=== PATIENT | female | born 1955 | race Caucasian/White ===

== ENCOUNTER 2017-08-31 08:06 | Inpatient (IN) | payer BC ==
[2017-08-31] VITALS (11 sets, daily range): BP systolic 110–131; BP diastolic 67–89
[~2017-08-31] VITALS: Ht 172.7 cm; Wt 220.0 kg
[~2017-08-31 08:06] MED LIST: BENA40TA8 PO; BUDE10.22 INH; LEVO88TA39 PO
[2017-08-31] MEDS: nitroGLYCERIN-Tridil 50MG/D5W 250 ML IV PRN ×2 (08:42→09:19)
[2017-08-31] MEDS ORDERED: tirofiban 5mg in NS 100mL 100 ML IV SCH (08:50)
[2017-08-31 09:03] LABS: BASOPHILS % (AUTO) 0.1 % (0-1); EOSINOPHILS # (AUTO) 0.2 X10'3 (0-0.9); EOSINOPHILS % (AUTO) 1.9 % (0-6); HEMATOCRIT 39.6 % (35.0-45.0); HEMOGLOBIN 13.7 g/dl (12.0-16.0); LYMPHOCYTES # (AUTO) 2.3 X10'3 (1.1-4.8); LYMPHOCYTES % (AUTO) 26.6 % (21-51); MEAN CORPUSCULAR HEMOGLOBIN 29.7 PG (27.0-31.0); MEAN CORPUSCULAR HGB CONC 34.7 % (33.0-36.5); MEAN CORPUSCULAR VOLUME 85.8 FL (78-98); MEAN PLATELET VOLUME 7.6 FL (7.4-10.4); MONOCYTES # (AUTO) 0.4 X10'3 (0-0.9); MONOCYTES % (AUTO) 4.8 % (2-12); NEUTROPHILS # (AUTO) 5.9 X10'3 (1.8-7.7); NEUTROPHILS % (AUTO) 66.6 % (42-75); PLATELET COUNT 283 X10'3 (140-440); RED BLOOD COUNT 4.61 X10'6 (4.20-5.60); RED CELL DISTRIBUTION WIDTH 13.9 % (11.5-14.5); WHITE BLOOD COUNT 8.8 X10'3 (4.5-11.0)
[2017-08-31 09:12] LABS: PARTIAL THROMBOPLASTIN TIME 52 SECONDS (22-32)
[2017-08-31] MEDS ORDERED: LIDOcaine 1% 30ml vial 30 ML ONE (09:15)
[2017-08-31] MEDS ORDERED: nitroGLYCERIN-Tridil 50MG/D5W 250 ML IV ONE (09:15)
[2017-08-31] MEDS ORDERED: heparin 1,000unit/ml 10ml vial 10 ML ONE (09:15)
[2017-08-31] MEDS ORDERED: iohexol 350 MG/ML 50ML vial IV ONE (09:16)
[2017-08-31] MEDS ORDERED: iohexol 350MG/ML 100ml bottle IV ONE (09:16)
[2017-08-31] MEDS ORDERED: midazolam 2 mg/2 ml injection ONE (09:18)
[2017-08-31] MEDS ORDERED: fentaNYL/PF 50MCG/1 ML 2ML syringe ONE (09:18)
[2017-08-31 09:24] LABS: ALANINE AMINOTRANSFERASE 15 U/L (12-78); ALBUMIN 3.5 G/DL (3.4-5.0); ALBUMIN/GLOBULIN RATIO 0.9 (1.1-1.5); ALKALINE PHOSPHATASE 78 IU/L (46-116); ANION GAP 7 (8-16); ASPARTATE AMINO TRANSFERASE 42 U/L (10-37); BILIRUBIN,TOTAL 0.8 MG/DL (0.1-1.0); BLOOD UREA NITROGEN 15 MG/DL (7-18); BUN/CREATININE RATIO 16.7 (6.6-38.0); CALCIUM 9.5 MG/DL (8.5-10.1); CHLORIDE 104 MMOL/L (99-107); GLUCOSE 106 MG/DL (70-104); MAGNESIUM 2.1 MG/DL (1.5-2.4); POTASSIUM 3.7 MMOL/L (3.5-5.1); SODIUM 143 MMOL/L (135-145); TOTAL CARBON DIOXIDE 32.1 MMOL/L (24-32); TOTAL PROTEIN 7.4 G/DL (6.4-8.2); eGFR 64 ML/MIN
[2017-08-31] MEDS ORDERED: enoxaparin 100mg/ml syringe SUBCUT ONE (09:30)
[2017-08-31] MEDS ORDERED: normal saline 1000ml 1,000 ML IV SCH (09:38)
[2017-08-31] MEDS ORDERED: magnesium 2GM in 50ml NS 50 ML IV PRN (09:40)
[2017-08-31] MEDS ORDERED: magnesium 4gm in 100ml NS 100 ML IV PRN (09:40)
[2017-08-31] MEDS: K and/or MAG REPLACEMENT MC SCH (09:40)
[2017-08-31] MEDS ORDERED: acetaminophen 325mg tablet PO PRN ×2 (09:40)
[2017-08-31] MEDS ORDERED: magnesium hydroxide 30ml (MOM) UD suspension PO PRN (09:40)
[2017-08-31] MEDS ORDERED: ondansetron/PF 4mg/2ml inj IV PRN (09:40)
[2017-08-31] MEDS ORDERED: magnesium Cl slow-release 64mg tablet PO PRN (09:40)
[2017-08-31] MEDS ORDERED: potassium Cl 40MEQ/NS 500ml 500 ML IV PRN ×2 (09:40)
[2017-08-31] MEDS ORDERED: mag hydrox/Alum hydrox/simeth 30ml oral suspension PO PRN (09:40)
[2017-08-31] MEDS ORDERED: potassium Cl 20 mEq SR tablet PO PRN (09:40)
[2017-08-31] MEDS ORDERED: ondansetron/PF 4mg/2ml inj ONE (10:17)
[2017-08-31] MEDS ORDERED: proCHLORperazine 10 MG/2 ml inj IV PRN (19:10)
[2017-08-31] MEDS ORDERED: ondansetron 4mg rapidly disintigrating tab PO PRN (19:30)
[2017-08-31] MEDS: carvedilol 6.25mg tablet PO SCH (19:44)
[2017-08-31] MEDS ORDERED: lisinopril 20mg tablet PO SCH (21:00)
[2017-09-01] VITALS (7 sets, daily range): BP systolic 93–122; BP diastolic 53–76
[2017-09-01 06:46] LABS: BASOPHILS % (AUTO) 0.2 % (0-1); EOSINOPHILS # (AUTO) 0.2 X10'3 (0-0.9); EOSINOPHILS % (AUTO) 2.2 % (0-6); HEMATOCRIT 38.1 % (35.0-45.0); HEMOGLOBIN 13.1 g/dl (12.0-16.0); LYMPHOCYTES # (AUTO) 2.2 X10'3 (1.1-4.8); LYMPHOCYTES % (AUTO) 30.4 % (21-51); MEAN CORPUSCULAR HEMOGLOBIN 29.2 PG (27.0-31.0); MEAN CORPUSCULAR HGB CONC 34.4 % (33.0-36.5); MEAN PLATELET VOLUME 7.8 FL (7.4-10.4); MONOCYTES # (AUTO) 0.5 X10'3 (0-0.9); NEUTROPHILS # (AUTO) 4.3 X10'3 (1.8-7.7); NEUTROPHILS % (AUTO) 60.2 % (42-75); PLATELET COUNT 261 X10'3 (140-440); RED BLOOD COUNT 4.48 X10'6 (4.20-5.60); RED CELL DISTRIBUTION WIDTH 14.3 % (11.5-14.5); WHITE BLOOD COUNT 7.2 X10'3 (4.5-11.0)
[2017-09-01 07:11] LABS: ANION GAP 8 (8-16); BLOOD UREA NITROGEN 13 MG/DL (7-18); BUN/CREATININE RATIO 16.3 (6.6-38.0); CHLORIDE 105 MMOL/L (99-107); GLUCOSE 102 MG/DL (70-104); POTASSIUM 3.1 MMOL/L (3.5-5.1); SODIUM 141 MMOL/L (135-145); TOTAL CARBON DIOXIDE 28.2 MMOL/L (24-32); eGFR 73 ML/MIN
[2017-09-01] MEDS: carvedilol 6.25mg tablet PO SCH ×2 (07:34→19:45)
[2017-09-01] MEDS: levoTHYROXINE 88mcg tablet PO SCH (07:34)
[2017-09-01] MEDS: aspirin 81mg tablet.DR PO SCH (07:34)
[2017-09-01] MEDS: K and/or MAG REPLACEMENT MC SCH (07:36)
[2017-09-01] MEDS: potassium Cl 20 mEq SR tablet PO PRN ×3 (07:36→17:29)
[2017-09-01] MEDS ORDERED: potassium Cl 20 mEq SR tablet PO STA (07:41)
[2017-09-01] MEDS ORDERED: lisinopril 5mg tablet PO SCH (08:00)
[2017-09-01] MEDS: spironolactone 25 MG tablet PO SCH (10:36)
[2017-09-01] MEDS ORDERED: LORazepam 0.5 MG tablet PO PRN (17:15)
[2017-09-01] MEDS ORDERED: temazepam 15mg capsule PO PRN (17:15)
[2017-09-02 02:00] VITALS: BP 99/57
[2017-09-02 06:00] VITALS: BP 113/76
[2017-09-02] MEDS: levoTHYROXINE 88mcg tablet PO SCH (07:14)
[2017-09-02] MEDS: carvedilol 6.25mg tablet PO SCH (07:17)
[2017-09-02] MEDS: aspirin 81mg tablet.DR PO SCH (07:17)
[2017-09-02] MEDS: spironolactone 25 MG tablet PO SCH (07:20)
[2017-09-02] MEDS ORDERED: potassium Cl 40MEQ/NS 500ml 500 ML IV PRN ×2 (07:45)
[2017-09-02] MEDS ORDERED: potassium Cl 20 mEq SR tablet PO PRN ×2 (07:45)
[2017-09-02] MEDS ORDERED: K and/or MAG REPLACEMENT MC SCH (08:00)
[2017-09-02] MEDS ORDERED: losartan 50mg tablet PO SCH (08:00)
[2017-09-02 09:10] LABS: TROPONIN I 1.27 NG/ML (0.0-0.05)
[2017-09-02] MEDS: potassium Cl 20 mEq SR tablet PO PRN (09:55)
[2017-09-02 11:00] VITALS: BP 120/72
[2017-09-02 11:18] LABS: BASOPHILS % (AUTO) 0.4 % (0-1); EOSINOPHILS # (AUTO) 0.2 X10'3 (0-0.9); EOSINOPHILS % (AUTO) 2.4 % (0-6); HEMATOCRIT 38.8 % (35.0-45.0); HEMOGLOBIN 13.2 g/dl (12.0-16.0); LYMPHOCYTES # (AUTO) 2.2 X10'3 (1.1-4.8); LYMPHOCYTES % (AUTO) 32.1 % (21-51); MEAN CORPUSCULAR HEMOGLOBIN 29.2 PG (27.0-31.0); MEAN CORPUSCULAR VOLUME 85.8 FL (78-98); MEAN PLATELET VOLUME 8.1 FL (7.4-10.4); MONOCYTES # (AUTO) 0.3 X10'3 (0-0.9); MONOCYTES % (AUTO) 3.7 % (2-12); NEUTROPHILS # (AUTO) 4.3 X10'3 (1.8-7.7); NEUTROPHILS % (AUTO) 61.4 % (42-75); PLATELET COUNT 280 X10'3 (140-440); RED BLOOD COUNT 4.52 X10'6 (4.20-5.60); RED CELL DISTRIBUTION WIDTH 14.5 % (11.5-14.5)
[2017-09-02 11:35] LABS: ALBUMIN 3.3 G/DL (3.4-5.0); ANION GAP 12 (8-16); BLOOD UREA NITROGEN 14 MG/DL (7-18); CALCIUM 8.9 MG/DL (8.5-10.1); CHLORIDE 102 MMOL/L (99-107); GLUCOSE 147 MG/DL (70-104); MAGNESIUM 1.9 MG/DL (1.5-2.4); POTASSIUM 3.5 MMOL/L (3.5-5.1); SODIUM 140 MMOL/L (135-145); TOTAL CARBON DIOXIDE 25.6 MMOL/L (24-32); eGFR 56 ML/MIN
[2017-09-02] MEDS ORDERED: CARV6.253 PO (13:53)
[2017-09-02] MEDS ORDERED: LOSA50TA37 PO (13:53)
[2017-09-02] MEDS ORDERED: ASPI-1071 PO (13:53)
[2017-09-02] MEDS ORDERED: SPIR25TA3 PO (13:53)
[2017-09-02] MEDS ORDERED: BENA40TA8 PO (13:53)
== END 2017-09-02 15:05 | disposition home or self-care (01) | DRG 281 ==
LOC: ER 08:06 → ED HOLD 09:38 → PCU 3S 10:41
PROVIDERS: ADMIT Internal Medicine; ATTEND Internal Medicine Cardiovascular Disease
PROC: 4A023N7 Measurement of Cardiac Sampling and Pressure, Left Heart, Percutaneous Approach (ICD-10-PCS; principal; 2017-08-31)
PROC: B2111ZZ Fluoroscopy of Multiple Coronary Arteries using Low Osmolar Contrast (ICD-10-PCS; 2017-08-31)
PROC: B2151ZZ Fluoroscopy of Left Heart using Low Osmolar Contrast (ICD-10-PCS; 2017-08-31)
DX: I21.4 Non-ST elevation (NSTEMI) myocardial infarction (principal); I51.81 Takotsubo syndrome; Z68.45 Body mass index [BMI] 70 or greater, adult; E66.9 Obesity, unspecified; E03.9 Hypothyroidism, unspecified; I10 Essential (primary) hypertension; Z88.0 Allergy status to penicillin; Z88.2 Allergy status to sulfonamides; Z88.1 Allergy status to other antibiotic agents; Z88.5 Allergy status to narcotic agent; Z91.012 Allergy to eggs; Z79.51 Long term (current) use of inhaled steroids; Z79.899 Other long term (current) drug therapy
CPT/HCPCS: 36415; 71045; 80048; 80053; 83735; 83880; 84484; 85025; 85347; 85610; 85730; 87070; 93005; 93306; 93458; 96365; 99152; 99291; A4620; A6257; C1760; C1769; J0780; J1644; J1650; J2250; J2405; J3010; J3246; J3490; Q9967